=== PATIENT | female | born 1945 | race African-American/Black ===

== ENCOUNTER 2019-11-16 11:50 | Emergency (ER) | payer MEDICARE, MEDICAID ==
[~2019-11-16] VITALS: Ht 157.5 cm; Wt 55.0 kg
[~2019-11-16 11:50] MED LIST: AMLO5TAB4 PO; FLUT16SP15 NS; LORA10TA7 PO
[2019-11-16 13:00] LABS: BASOPHILS % 0.9 % (0.0-2.0); EOSINOPHILS % 0.9 % (0.0-5.0); HEMATOCRIT. 38.6 % (36.0-48.0); HEMOGLOBIN. 13.2 g/dL (12.0-16.0); LYMPHOCYTES % 37.5 % (20.0-50.0); MEAN CORPUSCULAR HEMOGLOBIN 31.7 pg (28.0-32.0); MEAN PLATELET VOLUME 11.1 fl (7.4-10.4); MONOCYTES % 7.8 % (2.0-8.0); NEUTROPHILS % 52.9 % (40.0-76.0); PLATELET 134 x1000/uL (130-400); RED BLOOD CELL COUNT 4.15 mill/uL (4.2-5.4); RED CELL DISTRIBUTION WIDTH 13.8 % (11.6-14.6)
[2019-11-16 13:09] LABS: CHLORIDE 105 mEq/L (98-107)
[2019-11-16 13:10] LABS: PROTHROMBIN TIME 10.8 sec (9.6-11.0)
[2019-11-16] MEDS ORDERED: FAMOTIDINE 20MG/2ML VIAL IV NR (13:15)
[2019-11-16 13:23] LABS: CLARITY URINE CLEAR (CLEAR); COLOR URINE YELLOW (YELLOW); KETONES URINE NEGATIVE (NEGATIVE); LEUKOCYTE ESTERASE URINE TRACE (NEGATIVE); NITRITE URINE NEGATIVE (NEGATIVE); OCCULT BLOOD URINE TRACE (NEGATIVE); PH URINE 5.5 (4.5-8.0); PROTEIN URINE NEGATIVE (NEGATIVE); SPECIFIC GRAVITY URINE 1.011 (1.005-1.030); UROBILINOGEN URINE 0.2 E.U./dL (0.2-1.0)
[2019-11-16 14:32] VITALS: BP 154/72
== END 2019-11-16 14:56 | disposition home or self-care (01) ==
LOC: ER 11:50 → CANBEDREQ 14:58
DX: K59.00 Constipation, unspecified (principal); I49.9 Cardiac arrhythmia, unspecified; I10 Essential (primary) hypertension; Z79.899 Other long term (current) drug therapy
CPT/HCPCS: 36415; 71045; 76705; 80053; 81003; 83605; 83690; 83880; 84484; 85025; 85610; 93005; 96374; 99285; J3490

== ENCOUNTER 2021-12-01 06:29 | Emergency (ER) | payer MEDICARE, MEDICAID ==
[~2021-12-01] VITALS: Ht 167.6 cm; Wt 57.0 kg
[2021-12-01 06:59] VITALS: BP 153/77
[2021-12-01] MEDS ORDERED: CYCLOBENZAPRINE 10MG TABLET PO ONE (08:45)
[2021-12-01] MEDS ORDERED: CYCL5TAB MT (09:12)
== END 2021-12-01 10:23 | disposition home or self-care (01) ==
LOC: ER 06:29
DX: M54.6 Pain in thoracic spine (principal); M54.59 Other low back pain; I10 Essential (primary) hypertension
CPT/HCPCS: 99283

== ENCOUNTER 2024-11-22 12:35 | Emergency (ER) | payer MEDICARE, MEDICAID ==
[~2024-11-22] VITALS: Ht 162.6 cm; Wt 65.0 kg
[~2024-11-22 12:35] MED LIST changes: -AMLO5TAB4 PO; +AMLO5TAB5 PO; +AMOX1TAB16 PO; +CYCL5TAB3 MT; +FLUT9.9S BOTHNSTRLS
[2024-11-22 12:36] VITALS: O2SAT 100
[2024-11-22 15:13] LABS: BASOPHILS % 3.0 % (0.0-2.0); EOSINOPHILS % 1.1 % (0.0-5.0); HEMATOCRIT. 38.4 % (36.0-48.0); HEMOGLOBIN. 12.9 g/dL (12.0-16.0); LYMPHOCYTES % 37.3 % (20.0-50.0); MEAN PLATELET VOLUME 11.5 fl (7.4-10.4); MONOCYTES % 9.2 % (2.0-8.0); NEUTROPHILS % 49.4 % (40.0-76.0); PLATELET 124 x1000/uL (130-400); RED BLOOD CELL COUNT 4.15 mill/uL (4.2-5.4); RED CELL DISTRIBUTION WIDTH 13.9 % (11.6-14.6)
[2024-11-22 15:23] LABS: CREATININE 0.7 mg/dL (0.6-1.0)
[2024-11-22 15:24] LABS: UREA NITROGEN BLOOD 14 mg/dL (9-23)
[2024-11-22 16:13] VITALS: BP 126/74; PULSE 85; RESP 18; TEMP 36.8; O2SAT 100
== END 2024-11-22 16:14 | disposition home or self-care (01) ==
LOC: ER 12:35
DX: R42 Dizziness and giddiness (principal); I10 Essential (primary) hypertension; M19.90 Unspecified osteoarthritis, unspecified site; Z79.899 Other long term (current) drug therapy
CPT/HCPCS: 36415; 70486; 80048; 85025; 99284